=== PATIENT | male | born 1945 | race Caucasian/White ===

== ENCOUNTER → 2016-08-06 | Outpatient (CLI) | payer OTHER ==
[~2016-08-06] MED LIST: NS 100 ML IV 100 ML IV ONE
[2016-08-06 15:54] LABS: CREATININE 1.42 mg/dL (0.70-1.30)
--- NOTE | 2016-08-06 17:34 | CT ---
HISTORY: Headache, postop back surgery. Altered speech. Study: CT brain within without contrast Comparison: None available Technique: Multiple axial images of the brain were obtained from the skull base to the vertex before and after IV contrast administration. Automated exposure control (AEC) was utilized to adjust the MA and/or kV according to patient size.. 100 cc Omnipaque 350 was given. Findings: Noncontrast head CT: There is no acute intracranial hemorrhage. The brain parenchyma is normal in density. No mass or m ass effect. No abnormal extra-axial fluid collection. The ventricles are normal in size, shape and position. Basilar cisterns patent. Glass matter -white matter interface is distinct. There is a 1.5 cm soft tissue density within the inferior left maxillary sinus compatible with a muc ous retention cyst or solitary polyp. The left sphenoid chamber is partially opacified with bony wal l thickening compatible with chronic sinusitis mild increased density within the opacification may b e secondary to fungal colonization or inspissated secretions. There is no acute osseous abnormality . Postcontrast head CT: Intracranial vascular structures enhance in a normal fashion. There is no abno rmal parenchymal, leptomeningeal, or parenchymal enhancement demonstrated. IMPRESSION: 1. No acute intracranial process can be identified. If there is clinical concern for acute ischemia , further evaluation with MRI of the brain would be recommended if not contraindicated. 2. Findings consistent with chronic left sphenoid sinusitis as discussed above. The opacification of the left sphenoid chamber demonstrates mildly increased attenuation which may be secondary to inspi ssated secretions or fungal colonization. 3. Left maxillary sinus mucous retention cyst versus solitary polyp 4. Other findings as above. Reported By:
== END ==
LOC: RAD 15:13
PROVIDERS: ATTEND Neurological Surgery
DX: R51 Headache (principal)
CPT/HCPCS: 36415; 70470; 82565; 84520; A4222

== ENCOUNTER → 2017-04-02 | Outpatient (CLI) | payer OTHER ==
[~2017-04-02] MED LIST changes: -NS 100 ML IV 100 ML IV ONE; +NS 250 ML IV 250 ML IV ONE
--- NOTE | 2017-04-02 15:16 | CT ---
Indication: Pain Exam: CT abdomen and pelvis with contrast Technique: Axial spiral images were obtained from lung bases through the pubic symphysis after contra st without complication. Automated does control was utilized. Findings: The lung bases are clear. There is a moderate hiatal hernia along the lower mediastinum. Th e liver and spleen are normal size and density. The gallbladder has been removed with clips in the ga llbladder fossa. There is mild enlargement of the common bile duct which tapers distally with no fill ing defects seen. The pancreas and adrenals are normal . The kidneys are normal size with mild pelvic caliectasis on the left. The left ureter is not significantly dilated no obvious filling defect can be seen in the ureter. The right kidney is unremarkable. The ureters are normal caliber distally . No adenopathy or ascites is seen. There are diverticula along the sigmoid colon with no pericolonic inf lammation. The appendix is not visualized. The prostate gland is not well visualized. Moderate degene rative changes are seen in the spine with a moderate compression fracture of T12. There is no displac ed or retropulsed fragment. Impression: Questionable mild hydronephrosis on the right with no obvious stones seen in the ureter. Recommend cl inical follow-up and suggest ultrasound correlation Status post cholecystectomy.. Moderate hiatal hernia with prominence of the common bile duct which is probably postsurgical in etio logy , recommend correlating with lab values. Moderate hiatal hernia. Mild diverticulosis of the sigmoid colon with no pericolonic inflammation. Status post prostatectomy and appendectomy. Moderate compression fracture of T12 which appears chronic , recommend clinical follow-up. Reported By:
== END ==
LOC: RAD 08:35
PROVIDERS: ATTEND Internal Medicine
DX: K29.60 Other gastritis without bleeding (principal); R11.2 Nausea with vomiting, unspecified; R10.33 Periumbilical pain
CPT/HCPCS: 74177; A4222

== ENCOUNTER 2017-06-06 09:12 | Day surgery (SDC) | payer OTHER ==
[2017-06-06] MEDS ORDERED: D5 LR 1000 ML 1,000 ML IV ONE (09:20)
[2017-06-06] MEDS ORDERED: DIPRIVAN VIAL 20 ML ONE (10:18)
[2017-06-06 11:25] VITALS: BP 110/63
== END 2017-06-06 11:10 | disposition home or self-care (01) ==
LOC: SURG1 09:12
PROVIDERS: ATTEND Internal Medicine Gastroenterology
PROC: 0DJD8ZZ Inspection of Lower Intestinal Tract, Via Natural or Artificial Opening Endoscopic (ICD-10-PCS; principal; 2017-06-06 12:00)
PROC: 0DBP8ZX Excision of Rectum, Via Natural or Artificial Opening Endoscopic, Diagnostic (ICD-10-PCS; principal; 2017-06-06 12:00)
DX: Z12.11 Encounter for screening for malignant neoplasm of colon (principal); Z86.010 Personal history of colon polyps; R19.4 Change in bowel habit; R10.84 Generalized abdominal pain; K57.30 Diverticulosis of large intestine without perforation or abscess without bleeding; K63.5 Polyp of colon; K64.0 First degree hemorrhoids
CPT/HCPCS: 99100; A4217; J3490; J7120

== ENCOUNTER 2019-06-05 13:42 | Inpatient (IN) ==
[2019-06-05] MEDS ORDERED: NS 1/2 1000 ML IV 1,000 ML IV ONE (17:16)
[2019-06-05] MEDS: FORTAZ or TAZICEF VIAL INJ 1 G in NS 100 ML IV + SPIKE MINIBAG* 100 ML IV SCH ×2 (17:24→22:00)
[2019-06-05] MEDS: ROBITUSSIN DM PO SCH ×2 (17:26→20:20)
[2019-06-05] MEDS: VSL#3 PO SCH (17:26)
[2019-06-05] MEDS: NS 1/2 1000 ML IV 1,000 ML IV SCH (17:26)
[2019-06-05 17:29] LABS: BASOPHILS % (AUTO) 0.1 % (0.2-1.0); EOSINOPHILS # (AUTO) 0.1 x10^3/uL (0.0-0.2); EOSINOPHILS % (AUTO) 0.9 % (0.9-2.9); HEMATOCRIT 40.2 % (42.0-54.0); HEMOGLOBIN 13.6 g/dL (13.5-18.0); LYMPHOCYTES # (AUTO) 0.5 X10^3/uL (1.3-2.9); LYMPHOCYTES % (AUTO) 6.6 % (21.0-51.0); MEAN CORPUSCULAR HEMOGLOBIN 30.2 pg (27.0-34.0); MEAN CORPUSCULAR HGB CONC 33.9 g/dL (33.0-35.0); MEAN CORPUSCULAR VOLUME 89.1 fL (80.0-100.0); MEAN PLATELET VOLUME 7.6 fL (7.4-11.0); MONOCYTES # (AUTO) 0.4 x10^3/uL (0.3-0.8); MONOCYTES % (AUTO) 5.5 % (0.0-13.0); NEUTROPHILS # (AUTO) 5.9 x10^3/uL (2.2-4.8); NEUTROPHILS % (AUTO) 86.9 % (42.0-75.0); PLATELET COUNT 169 X10^3/uL (150.0-450.0); RED BLOOD COUNT 4.51 X10^6/uL (4.7-6.0); RED CELL DISTRIBUTION WIDTH 14.4 % (11.6-16.5); WHITE BLOOD COUNT 6.8 X10^3/uL (3.6-10.0)
[2019-06-05] MEDS ORDERED: SALINE 3% 15 ML NEB TX NEB ONE (17:35)
[2019-06-05 17:37] LABS: ALANINE AMINOTRANSFERASE 32 Units/L (12-78); ALBUMIN 4.2 g/dL (3.4-5.0); ALKALINE PHOSPHATASE 61 Units/L (46-116); ASPARTATE AMINO TRANSFERASE 24 Units/L (15-37); BLOOD UREA NITROGEN 23 mg/dL (7-18); CALCIUM 8.9 mg/dL (8.5-10.1); CARBON DIOXIDE 24.7 mmol/L (21-32); CHLORIDE 103 mmol/L (98-107); COR NA(FOR HYPERGLY) 141 mmol/L (136-145); CREATININE 1.34 mg/dL (0.70-1.30); SODIUM 140 mmol/L (136-145); eGFR NON BLACK RACES 55 (>60)
[2019-06-05 18:15] VITALS: BMI 22.6
[2019-06-05] MEDS: ZOFRAN INJ 4 MG VIAL IVP PRN (19:33)
[2019-06-05] MEDS: LEVAQUIN PREMIX IV 750 MG 750 MG/150 ML BAG IV SCH (19:47)
--- NOTE | 2019-06-05 20:39 | RAD ---
HISTORYPNEUMONIA, COUGHSTUDYCHEST, PA/LAT ADULTCOMPARISONNoneFINDINGSThe trachea is midline. The cardiac silhouette is enlarged. Postoperative changes of CABG. The lungs are clear without focal infiltrate or effusion. The bony thorax is intact.. Severe degenerative changes of the left glenohumeral joint.IMPRESSIONNo acute cardiopulmonary disease.Electronically signed by: NUNU TINAJERO (Jun 05, 2019 20:39:20)
[2019-06-05] MEDS: PROVENTIL NEB TX 0.083% 2.5MG/ 3ML NEB SCH (20:44)
[2019-06-05] MEDS: PULMICORT NEB TX 0.5 MG NEB SCH (20:44)
[2019-06-06] MEDS: ZOFRAN INJ 4 MG VIAL IVP PRN ×3 (01:41→17:29)
[2019-06-06 03:08] LABS: BILIRUBIN,URINE NEGATIVE (NEGATIVE); BLOOD/HEMOGLOBIN,URINE 2+ (NEGATIVE); GLUCOSE, URINE NEGATIVE (NEGATIVE); KETONES,URINE 4+ (NEGATIVE); LEUKOCYTE ESTERASE ,URINE NEGATIVE (NEGATIVE); NITRITES,URINE NEGATIVE (NEGATIVE); PROTEIN,URINE 2+ (NEGATIVE); UROBILINOGEN,URINE NORMAL (NORMAL)
[2019-06-06 03:14] LABS: APPEARANCE,URINE CLEAR (CLEAR); BACTERIA,URINE NEGATIVE /HPF (NEGATIVE); COLOR,URINE YELLOW (YELLOW); RBC,URINE 0-2 /HPF (0-3); SQUAMOUS EPITHELIAL CELL,UR RARE /HPF (NEGATIVE)
[2019-06-06] MEDS: FORTAZ or TAZICEF VIAL INJ 1 G in NS 100 ML IV + SPIKE MINIBAG* 100 ML IV SCH ×3 (05:24→21:49)
--- NOTE | 2019-06-06 06:08 | RAD ---
HISTORYSOBSTUDYCHEST, 1 VIEWCOMPARISONINDINGSHeart size remains enlarged post CABG. Chronic interstitial lung changes and COPD. No new airspace opacity pleural effusion or pneumothorax. No acute osseous abnormality.IMPRESSIONStable cardiomegaly, chronic interstitial lung changes and COPD without acute airspace disease or CHF.Electronically signed by: JAMES TYLER (Jun 06, 2019 06:07:53)
[2019-06-06 06:25] LABS: BASOPHILS % (AUTO) 0.1 % (0.2-1.0); HEMATOCRIT 35.5 % (42.0-54.0); HEMOGLOBIN 12.1 g/dL (13.5-18.0); LYMPHOCYTES # (AUTO) 0.5 X10^3/uL (1.3-2.9); LYMPHOCYTES % (AUTO) 6.5 % (21.0-51.0); MEAN CORPUSCULAR HEMOGLOBIN 30.3 pg (27.0-34.0); MEAN CORPUSCULAR HGB CONC 33.9 g/dL (33.0-35.0); MEAN CORPUSCULAR VOLUME 89.2 fL (80.0-100.0); MEAN PLATELET VOLUME 7.5 fL (7.4-11.0); MONOCYTES # (AUTO) 0.6 x10^3/uL (0.3-0.8); MONOCYTES % (AUTO) 6.9 % (0.0-13.0); NEUTROPHILS # (AUTO) 7.1 x10^3/uL (2.2-4.8); NEUTROPHILS % (AUTO) 86.5 % (42.0-75.0); PLATELET COUNT 151 X10^3/uL (150.0-450.0); RED BLOOD COUNT 3.98 X10^6/uL (4.7-6.0); RED CELL DISTRIBUTION WIDTH 14.4 % (11.6-16.5); WHITE BLOOD COUNT 8.2 X10^3/uL (3.6-10.0)
[2019-06-06 06:47] LABS: ALANINE AMINOTRANSFERASE 28 Units/L (12-78); ALBUMIN 3.5 g/dL (3.4-5.0); ALKALINE PHOSPHATASE 51 Units/L (46-116); ASPARTATE AMINO TRANSFERASE 24 Units/L (15-37); BLOOD UREA NITROGEN 24 mg/dL (7-18); CALCIUM 8.3 mg/dL (8.5-10.1); CARBON DIOXIDE 20.9 mmol/L (21-32); CHLORIDE 104 mmol/L (98-107); COR NA(FOR HYPERGLY) 140 mmol/L (136-145); CREATININE 1.26 mg/dL (0.70-1.30); SODIUM 139 mmol/L (136-145); TOTAL PROTEIN 6.9 g/dL (6.4-8.2); eGFR NON BLACK RACES 59 (>60)
[2019-06-06] MEDS: PULMICORT NEB TX 0.5 MG NEB SCH ×2 (08:48→23:18)
[2019-06-06] MEDS: PROVENTIL NEB TX 0.083% 2.5MG/ 3ML NEB SCH ×4 (08:48→23:18)
[2019-06-06] MEDS: LEVAQUIN PREMIX IV 750 MG 750 MG/150 ML BAG IV SCH (09:20)
--- NOTE | 2019-06-06 09:28 | DR.UPDATE ---
H&P Update History and Physical Update: History and Physical reviewed and patient examined. Changes noted: Yes with the following: PRESENTED TO THE OFFICE FOR COMPLAINTS OF PRODUCTIVE COUGH, SHORTNESS OF BREATH, AND GENERALIZED BODY ACHES. SYMPTOMS STARTED ON 06/01 AND HAVE PROGRESSIVELY GOTTEN WORSE. HE DOES HAVE A HISTORY OF COPD. HE HAS BEEN TAKING CIPRO 500MG IV BID AND MUCINEX AT HOME SINCE 06/03/19. HE WAS ADMITTED FOR FURTHER EVALUATION AND TREATMENT. ON ARRIVAL, VITALS WERE 97.5-87-20-91%-186/91. LABS WERE OBTAINED. ABNORMAL LAB VALUES INCLUDE THE FOLLOWING: RBC 4.51, HCT 40.2, BUN 23, CREATININE 1.34, GLUCOSE 122. HE WAS POSITIVE FOR INFLUENZA A. BLOOD AND SPUTUM CULTURES WERE OBTAINED. CHEST XRAY REVEALED: NO CARDIOPULMONARY DISEASE. HE WAS STARTED ON IV FORTAZ, IV LEVAQUIN, RESPIRATORY TX, 1/2NS AT 75 ML/HR, ZOFRAN 4MG IV Q6H PRN, AND TAMIFLU 75MG PO BID. WE WILL CONTINUE WITH CURRENT PLAN OF CARE TODAY. OTHERWISE, WE WILL FOLLOW UP WITH AM LABS AND CONTINUE TO MONITOR. Prescription drug monitoring program results: PDMP was not reviewed H&P Reviewed: Yes Patient was examined?: Yes
[2019-06-06] MEDS: TAMIFLU PO SCH ×2 (10:51→21:48)
[2019-06-06] MEDS: ROBITUSSIN DM PO SCH ×4 (10:51→21:46)
[2019-06-06] MEDS: VSL#3 PO SCH (10:51)
[2019-06-06] MEDS: PHENERGAN INJ 25 MG IM PRN ×2 (12:53→19:43)
[2019-06-06] MEDS ORDERED: PHENERGAN INJ 25 MG IM ONE (12:55)
[2019-06-06] MEDS: PROTONIX INJ 40 MG VIAL IVP SCH (17:09)
[2019-06-06] MEDS ORDERED: PROTONIX INJ 40 MG VIAL ONE (17:11)
[2019-06-06] MEDS ORDERED: NS 1/2 1000 ML IV 1,000 ML IV ONE (19:36)
[2019-06-06] MEDS: NS 1/2 1000 ML IV 1,000 ML IV SCH ×3 (19:42→21:43)
[2019-06-06] MEDS: PEPCID 20 MG IV PREMIX* 20 MG/50 ML BAG IV SCH (21:48)
[2019-06-07] MEDS: FORTAZ or TAZICEF VIAL INJ 1 G in NS 100 ML IV + SPIKE MINIBAG* 100 ML IV SCH ×3 (05:58→21:50)
[2019-06-07 06:35] LABS: BASOPHILS % (AUTO) 0.1 % (0.2-1.0); EOSINOPHILS % (AUTO) 0.1 % (0.9-2.9); HEMATOCRIT 34.6 % (42.0-54.0); HEMOGLOBIN 11.8 g/dL (13.5-18.0); LYMPHOCYTES # (AUTO) 1.3 X10^3/uL (1.3-2.9); LYMPHOCYTES % (AUTO) 16.6 % (21.0-51.0); MEAN CORPUSCULAR HEMOGLOBIN 30.4 pg (27.0-34.0); MEAN CORPUSCULAR HGB CONC 34.2 g/dL (33.0-35.0); MEAN PLATELET VOLUME 7.8 fL (7.4-11.0); MONOCYTES # (AUTO) 0.4 x10^3/uL (0.3-0.8); NEUTROPHILS # (AUTO) 6.3 x10^3/uL (2.2-4.8); NEUTROPHILS % (AUTO) 78.2 % (42.0-75.0); PLATELET COUNT 141 X10^3/uL (150.0-450.0); RED BLOOD COUNT 3.89 X10^6/uL (4.7-6.0); RED CELL DISTRIBUTION WIDTH 14.5 % (11.6-16.5); WHITE BLOOD COUNT 8.1 X10^3/uL (3.6-10.0)
[2019-06-07 06:57] LABS: ALANINE AMINOTRANSFERASE 25 Units/L (12-78); ALKALINE PHOSPHATASE 43 Units/L (46-116); ASPARTATE AMINO TRANSFERASE 32 Units/L (15-37); BLOOD UREA NITROGEN 21 mg/dL (7-18); CALCIUM 8.4 mg/dL (8.5-10.1); CARBON DIOXIDE 22.8 mmol/L (21-32); CHLORIDE 107 mmol/L (98-107); COR CA(FOR HYPOALB) 9.2 mg/dL (8.5-10.1); CREATININE 1.18 mg/dL (0.70-1.30); SODIUM 141 mmol/L (136-145); TOTAL PROTEIN 6.6 g/dL (6.4-8.2); eGFR NON BLACK RACES > 60 (>60)
--- NOTE | 2019-06-07 07:52 | RAD ---
Exam:ACUTE ABDOMEN SERIESIndication: N/V, abd painComparison: [None available]Findings: [The trachea is slightly shifted to the left. Heart size is moderately enlarged with previous CABG. The lungs demonstrate interstitial coarsening, upper lobe predominant increased lucency and hyperexpansion which are consistent with changes associated with COPD. No focal airspace opacity, pleural effusion or pneumothorax.Nonspecific, nonobstructive bowel gas pattern. No free air or pneumatosis. No definite mass or abnormal calcification within the abdomen or pelvis.No acute osseous abnormality.Previous cholecystectomy is noted. Multiple surgical clips are noted within the pelvis.Impression:Cardiomegaly post CABG with COPD without acute airspace disease or CHF.No acute radiographic abnormality identified within the abdomen or pelvis]Electronically signed by: JAMES TYLER (Jun 07, 2019 07:50:47)
[2019-06-07] MEDS: PULMICORT NEB TX 0.5 MG NEB SCH ×2 (08:50→20:38)
[2019-06-07] MEDS: PROVENTIL NEB TX 0.083% 2.5MG/ 3ML NEB SCH ×4 (08:50→20:38)
[2019-06-07] MEDS: PEPCID 20 MG IV PREMIX* 20 MG/50 ML BAG IV SCH ×2 (09:36→20:22)
[2019-06-07] MEDS: PROTONIX INJ 40 MG VIAL IVP SCH (09:38)
[2019-06-07] MEDS: ROBITUSSIN DM PO SCH ×4 (09:39→20:22)
[2019-06-07] MEDS: TAMIFLU PO SCH ×2 (09:39→20:22)
[2019-06-07] MEDS: VSL#3 PO SCH (09:39)
[2019-06-07] MEDS: LEVAQUIN PREMIX IV 750 MG 750 MG/150 ML BAG IV SCH (09:40)
[2019-06-07] MEDS ORDERED: KLOR-CON PO PRN (11:15)
[2019-06-07] MEDS ORDERED: POTASSIUM CHL 40 MEQ/NS 0.45% 500 ML IV PRN (11:15)
[2019-06-07] MEDS ORDERED: POTASSIUM CHL 60 MEQ/NS 0.45% 500 ML IV PRN (11:15)
[2019-06-07] MEDS ORDERED: MICRO K EXTEN CAP 10 MEQ PO PRN (11:15)
[2019-06-07] MEDS ORDERED: K-RIDER 10 MEQ/NS 100 ML 10 MEQ/100 ML BAG IV PRN (11:15)
[2019-06-07] MEDS ORDERED: POTASSIUM CHLORIDE LIQ 20 MEQ UDC PO PRN (11:15)
[2019-06-07] MEDS ORDERED: K-DUR TAB 20 MEQ PO PRN (11:15)
[2019-06-07] MEDS ORDERED: K-DUR TAB 20 MEQ PO ONE (11:21)
[2019-06-07] MEDS: NS 1/2 1000 ML IV 1,000 ML IV SCH ×2 (16:38→16:39)
[2019-06-07] MEDS ORDERED: NS 1/2 1000 ML IV 1,000 ML IV ONE (16:53)
--- NOTE | 2019-06-07 21:33 | PCM.PROG ---
Progress Note - Progress Note for Day of Date of Exam: 06/07/19 - Subjective Subjective: IS BEING TREATED FOR BRONCHOPNEUMONIA, INFLUENZA A, AND NAUSEA, VOMITING, AND DIARRHEA. TODAY, HE IS LYING IN BED WITH EYES CLOSED ON MORNING ROUNDS. HE AWAKENS TO VERBAL STIMULI. HE IS ALERT AND ORIENTED. HE CONTINUES WITH COMPLAINTS OF NAUSEA, VOMITING, SHORTNESS OF BREATH, AND COUGH. HE ALSO REPORTS WEAKNESS. ON EXAMINATION, HEART IS REGULAR IN RATE AND RHYTHM. BILATERAL LUNGS ARE NOTED WITH SCATTERED WHEEZING THROUGHOUT. ABDOMEN IS ROUND, SOFT, AND NON-TENDER WITH NORMAL BOWEL SOUNDS NOTED IN ALL QUADRANTS. HER VITALS THIS MORNING ARE: 98.6-57-18-96%-115/58. LABS WERE OBTAINED. ABNORMAL LAB VALUES INCLUDE THE FOLLOWING: RBC 3.89, HGB 11.8, HCT 34.6, PLT COUNT 141, POTASSIUM 3.4, BUN 21, CALCIUM 8.4, ALK PHOS 43, ALBUMIN 3.0. SPUTUM AND BLOOD CULTURES ARE PENDING. A CHEST XRAY WAS OBTAINED AND REVEALED: Cardiomegaly post CABG with COPD without acute airspace disease or CHF. No acute radiographic abnormality identified within the abdomen or pelvis. HE IS CURRENTLY RECEIVING IV FORTAZ, IV LEVAQUIN, TAMIFLU, RESPIRATORY TREATMENTS, SUPPLEMENTAL OXYGEN, AND HOME MED ICATIONS WERE RESUMED. WE WILL CONTINUE WITH CURRENT PLAN OF CARE TODAY. OTHERWISE, WE PLAN TO FOLLOW UP WITH AM LABS AND CHEST XRAY AND CONTINUE TO MONITOR. - Past Medical Family Social History Past Med/Fam/Surg Hx: No changes since H&P Allergies: Allergies codeine Allergy (Verified 06/06/17 09:46) - Review of Systems ROS: No change since H&P - Vital Signs and I&O's Vital Signs: Temperature 98.8 F Pulse Rate [Right Radial] 88 Pulse Rate 75 Respiratory Rate 18 Blood Pressure [Right Arm] 109/59 Blood Pressure 110/63 O2 Sat by Pulse Oximetry 97 Intake and Output: Intake & Output 06/05/19 06/06/19 06/07/19 06/08/19 11:59 11:59 11:59 11:59 Intake Total 1200 / 1200 1010 / 1010 220 / 220 Balance 1200 / 1200 1010 / 1010 220 / 220 - Physical Exam Oriented: Normal Eyes: Normal Ear: Normal Nose: Normal Throat: Normal Respiratory: Generalized, Diminished, Wheezes Cardiovascular: Normal. negative: S3, S4, Murmur : Normal Auscultation: Bowel Sounds: Normal Palpation: Normal Tenderness: Normal Skin: Normal Musculoskeletal: Normal Psychiatric: Normal Mood Description: Calm Affect: Normal Speech Pattern: Clear, Appropriate - Laboratory and Diagnostics Result Diagrams: 06/07/19 05:40 06/07/19 05:40 Labs: 06/05/19 18:17 Sputum - Expectorated Sputum Sputum Culture - Preliminary 06/05/19 18:17 Sputum - Expectorated Sputum - Final 06/05/19 17:15 Blood Blood Culture - Preliminary 06/05/19 17:09 Blood Blood Culture - Preliminary Laboratory WBC 8.1 X10^3/uL (3.6-10.0) 06/07/19 05:40 RBC 3.89 X10^6/uL (4.7-6.0) L 06/07/19 05:40 Hgb 11.8 g/dL (13.5-18.0) L 06/07/19 05:40 Hct 34.6 % (42.0-54.0) L 06/07/19 05:40 MCV 89.0 fL (80.0-100.0) 06/07/19 05:40 MCH 30.4 pg (27.0-34.0) 06/07/19 05:40 MCHC 34.2 g/dL (33.0-35.0) 06/07/19 05:40 RDW 14.5 % (11.6-16.5) 06/07/19 05:40 Plt Count 141 X10^3/uL (150.0-450.0) L 06/07/19 05:40 MPV 7.8 fL (7.4-11.0) 06/07/19 05:40 Neut % (Auto) 78.2 % (42.0-75.0) H 06/07/19 05:40 Lymph % (Auto) 16.6 % (21.0-51.0) L 06/07/19 05:40 Coos % (Auto) 5.0 % (0.0-13.0) 06/07/19 05:40 Eos % (Auto) 0.1 % (0.9-2.9) L 06/07/19 05:40 Baso % (Auto) 0.1 % (0.2-1.0) L 06/07/19 05:40 Neut # (Auto) 6.3 x10^3/uL (2.2-4.8) H 06/07/19 05:40 Lymph # (Auto) 1.3 X10^3/uL (1.3-2.9) 06/07/19 05:40 Coos # (Auto) 0.4 x10^3/uL (0.3-0.8) 06/07/19 05:40 Eos # (Auto) 0.0 x10^3/uL (0.0-0.2) 06/07/19 05:40 Baso # (Auto) 0.0 X10^3/uL (0.0-0.1) 06/07/19 05:40 Absolute Nucleated RBC 0.0 /100WBC 06/07/19 05:40 Sodium 141 mmol/L (136-145) 06/07/19 05:40 Corrected Sodium TNP 06/07/19 05:40 Potassium 3.4 mmol/L (3.5-5.1) L 06/07/19 05:40 Chloride 107 mmol/L (98-107) 06/07/19 05:40 Carbon Dioxide 22.8 mmol/L (21-32) 06/07/19 05:40 BUN 21 mg/dL (7-18) H 06/07/19 05:40 Creatinine 1.18 mg/dL (0.70-1.30) 06/07/19 05:40 Est GFR (MDRD) Af Amer > 60 (>60) 06/07/19 05:40 Est GFR (MDRD) Non-Af > 60 (>60) 06/07/19 05:40 Glucose 93 mg/dL (65-99) 06/07/19 05:40 Calcium 8.4 mg/dL (8.5-10.1) L 06/07/19 05:40 Corrected Calcium 9.2 mg/dL (8.5-10.1) 06/07/19 05:40 Magnesium 2.2 mg/dL (1.7-2.9) 06/07/19 11:26 Total Bilirubin 0.40 mg/dL (0.2-1.0) 06/07/19 05:40 AST 32 Units/L (15-37) 06/07/19 05:40 ALT 25 Units/L (12-78) 06/07/19 05:40 Alkaline Phosphatase 43 Units/L (46-116) L 06/07/19 05:40 Total Protein 6.6 g/dL (6.4-8.2) 06/07/19 05:40 Albumin 3.0 g/dL (3.4-5.0) L 06/07/19 05:40 Globulin 3.6 g/dL (2.5-4.5) 06/07/19 05:40 Albumin/Globulin Ratio 0.8 Ratio (1.1-2.1) L 06/07/19 05:40 Specimen Type Clean catch urine 06/06/19 02:47 Urine Color Yellow (YELLOW) 06/06/19 02:47 Urine Appearance Clear (CLEAR) 06/06/19 02:47 Urine pH 5.0 (5.0 - 8.0) 06/06/19 02:47 Ur Specific [place] 1.020 (1.000-1.030) 06/06/19 02:47 Urine Protein 2+ (NEGATIVE) 06/06/19 02:47 Urine Glucose (UA) Negative (NEGATIVE) 06/06/19 02:47 Urine Ketones 4+ (NEGATIVE) 06/06/19 02:47 Urine Occult Blood 2+ (NEGATIVE) 06/06/19 02:47 Urine Nitrite Negative (NEGATIVE) 06/06/19 02:47 Urine Bilirubin Negative (NEGATIVE) 06/06/19 02:47 Urine Urobilinogen Normal (NORMAL) 06/06/19 02:47 Ur Leukocyte Esterase Negative (NEGATIVE) 06/06/19 02:47 Urine RBC 0-2 /HPF (0-3) 06/06/19 02:47 Urine WBC None seen /HPF (0-5) 06/06/19 02:47 Ur Squamous Epith Cells Rare /HPF (NEGATIVE) 06/06/19 02:47 Urine Bacteria Negative /HPF (NEGATIVE) 06/06/19 02:47 Ur Culture Indicated? No/not indicated 06/06/19 02:47 Influenza Type A (PCR) Positive (NEGATIVE) A 06/05/19 17:14 Influenza Type B (PCR) Negative (NEGATIVE) 06/05/19 17:14 - Plan (1) Bronchopneumonia Status: Acute Plan: IV FORTAZ, IV LEVAQUIN, TAMIFLU, RESPIRATORY TREATMENTS, SUPPLEMENTAL OXYGEN (2) Influenza A Status: Acute Plan: TAMIFLU 75MG PO BID, CONTINUE TO MONITOR (3) Nausea and vomiting Status: Acute Qualifiers: Vomiting Intractability: unspecified Plan: IV ZOFRAN, CONTINUE TO MONITOR (4) Diarrhea Status: Acute Qualifiers: Diarrhea type: presumed infectious Qualified Code(s): R19.7 - Diarrhea, unspecified Plan: CONTINUE TO MONITOR
[2019-06-08] MEDS: NS 1/2 1000 ML IV 1,000 ML IV SCH (03:03)
[2019-06-08] MEDS: FORTAZ or TAZICEF VIAL INJ 1 G in NS 100 ML IV + SPIKE MINIBAG* 100 ML IV SCH (05:52)
[2019-06-08 06:15] LABS: BASOPHILS % (AUTO) 0.5 % (0.2-1.0); EOSINOPHILS % (AUTO) 0.6 % (0.9-2.9); HEMATOCRIT 34.8 % (42.0-54.0); HEMOGLOBIN 11.9 g/dL (13.5-18.0); LYMPHOCYTES # (AUTO) 1.6 X10^3/uL (1.3-2.9); LYMPHOCYTES % (AUTO) 26.4 % (21.0-51.0); MEAN CORPUSCULAR HEMOGLOBIN 30.1 pg (27.0-34.0); MEAN CORPUSCULAR HGB CONC 34.3 g/dL (33.0-35.0); MEAN CORPUSCULAR VOLUME 87.9 fL (80.0-100.0); MEAN PLATELET VOLUME 7.2 fL (7.4-11.0); MONOCYTES # (AUTO) 0.4 x10^3/uL (0.3-0.8); MONOCYTES % (AUTO) 6.3 % (0.0-13.0); NEUTROPHILS # (AUTO) 4.1 x10^3/uL (2.2-4.8); NEUTROPHILS % (AUTO) 66.2 % (42.0-75.0); PLATELET COUNT 155 X10^3/uL (150.0-450.0); RED BLOOD COUNT 3.95 X10^6/uL (4.7-6.0); RED CELL DISTRIBUTION WIDTH 14.6 % (11.6-16.5); WHITE BLOOD COUNT 6.2 X10^3/uL (3.6-10.0)
[2019-06-08 06:38] LABS: ALANINE AMINOTRANSFERASE 32 Units/L (12-78); ALKALINE PHOSPHATASE 41 Units/L (46-116); ASPARTATE AMINO TRANSFERASE 40 Units/L (15-37); BLOOD UREA NITROGEN 17 mg/dL (7-18); CALCIUM 8.3 mg/dL (8.5-10.1); CARBON DIOXIDE 24.7 mmol/L (21-32); CHLORIDE 110 mmol/L (98-107); COR CA(FOR HYPOALB) 9.1 mg/dL (8.5-10.1); SODIUM 145 mmol/L (136-145); TOTAL PROTEIN 6.5 g/dL (6.4-8.2); eGFR NON BLACK RACES > 60 (>60)
--- NOTE | 2019-06-08 07:40 | RAD ---
HISTORYSOB pneumoniaSTUDYPortable AP [id number] cardiomegaly with postsurgical findings. The lungs are mae ar of active disease. There is extrinsic indentation on the right side of the trachea at the thoracic inlet.IMPRESSIONNo change; no acute cardiopulmonary lesion demonstrated. Tracheal deformity at the t horacic inlet is probably related to dilated brachiocephalic vascular impression. Other right-sided n isaiah or mediastinal mass should be clinically considered.Electronically signed by: JUDY BARRIOS (Jun 08, 2019 07:39:28)
[2019-06-08] MEDS: PULMICORT NEB TX 0.5 MG NEB SCH (08:12)
[2019-06-08] MEDS: PROVENTIL NEB TX 0.083% 2.5MG/ 3ML NEB SCH (08:12)
[2019-06-08] MEDS: PEPCID 20 MG IV PREMIX* 20 MG/50 ML BAG IV SCH (08:59)
[2019-06-08] MEDS ORDERED: LOVENOX INJ 40 MG SYR SC SCH (09:00)
[2019-06-08] MEDS: LEVAQUIN PREMIX IV 750 MG 750 MG/150 ML BAG IV SCH (09:03)
[2019-06-08] MEDS: VSL#3 PO SCH (09:04)
[2019-06-08] MEDS: TAMIFLU PO SCH (09:05)
[2019-06-08] MEDS: PROTONIX INJ 40 MG VIAL IVP SCH (09:05)
[2019-06-08] MEDS: ROBITUSSIN DM PO SCH (09:05)
[2019-06-08] MEDS ORDERED: NORCO 5/325 MG TAB PO PRN (09:08)
[2019-06-08] MEDS ORDERED: TAB-A-VITE PO SCH (09:15)
[2019-06-08] MEDS ORDERED: GLUCOSAMINE SULFATE 500 MG PO SCH (09:15)
[2019-06-08 09:19] VITALS: BP 152/68
[2019-06-08] MEDS ORDERED: VITAMIN C PO SCH (10:00)
[2019-06-08] MEDS ORDERED: SINEMET (PLAIN) 10/100 MG PO SCH (10:00)
[2019-06-08] MEDS ORDERED: NAMENDA TAB 10 MG PO SCH (10:00)
[2019-06-08] MEDS ORDERED: PROzac PO SCH (10:00)
[2019-06-08] MEDS ORDERED: TOPAMAX PO SCH (10:00)
[2019-06-08] MEDS ORDERED: ZESTRIL TAB 10 MG PO SCH (21:00)
[2019-06-08] MEDS ORDERED: ASPIRIN EC 81 MG PO SCH (21:00)
[2019-06-08] MEDS ORDERED: CRESTOR TAB 10 MG PO SCH (21:00)
[2019-06-08] MEDS ORDERED: ARICEPT TAB 10 MG PO SCH (21:00)
[2019-06-09] MEDS ORDERED: HYDROCHLOROTHIAZIDE 12.5 MG CAP PO SCH (09:00)
== END 2019-06-08 11:35 | disposition home or self-care (01) | DRG 195 ==
LOC: MED/SURG 14:40
PROVIDERS: ADMIT Internal Medicine; ATTEND Internal Medicine
DX: J10.08 Influenza due to other identified influenza virus with other specified pneumonia; J18.0 Bronchopneumonia, unspecified organism; F03.90 Unspecified dementia, unspecified severity, without behavioral disturbance, psychotic disturbance, mood disturbance, and anxiety; J44.9 Chronic obstructive pulmonary disease, unspecified; R19.7 Diarrhea, unspecified; R11.2 Nausea with vomiting, unspecified; I10 Essential (primary) hypertension
CPT/HCPCS: 36415; 71010; 71020; 71045; 71046; 74022; 80053; 81001; 83735; 85025; 87040; 87070; 87205; 87502; 94640; 94760; G9035; S0028; A4222; C9113; J0713; J1650; J1956; J2405; J2550; J7050; J7613; J7626